=== PATIENT | male | born 1970 | race African-American/Black ===

== ENCOUNTER → 2017-09-29 | Outpatient (CLI) | payer OTHER ==
--- NOTE | 2017-09-29 09:27 | Diagnostic Imaging Report ---
PROCEDURE:ABDOMINAL ULTRASOUND COMPARISON:Abdominal ultrasound 10/06/2016. INDICATIONS:Right and Left Abdomen Pain FINDINGS: Liver: 14.4 cm in length in the right midclavicular line. Normal hepatic parenchymal echogenicity. No focal mass. Main portal vein: 1.3 cm in caliber. Hepatopedal flow. Gallbladder: Normal in sonographic appearance without wall thickening, shadowing calculus, or pericholecystic fluid. Common Bile Duct: 0.3 cm in caliber. No echogenic filling defect. Sonographic Boyd's sign: Reported as negative. Right kidney: 11.1 cm in length. No solid or cystic mass, echogenic calculi, or hydronephrosis. Normal renal cortical echogenicity. Left kidney: 11 cm in length. No solid or cystic mass, echogenic calculi, or hydronephrosis. Normal renal cortical echogenicity. Spleen: 8 cm in length. Uniform parenchymal echotexture. Pancreas: The visualized portions of the pancreas are normal. Inferior vena cava: Patent. Aorta: Non-aneurysmal. Ascites: None. CONCLUSION: Unremarkable abdominal ultrasound. Dictated by: Bakari Marte M.D. on 09/29/2017 at 9:29 Electronically approved by: Bakari Marte M.D. on 09/29/2017 at 9:29
== END ==
LOC: US 08:29
PROVIDERS: ATTEND Internal Medicine Gastroenterology
DX: R10.9 Unspecified abdominal pain (principal)
CPT/HCPCS: 76700

== ENCOUNTER → 2019-04-21 | Day surgery (SDC) | payer OTHER ==
[~2019-04-21] MED LIST: DEXMEDETOMIDINE HCL 2 ML ONE; FENTANYL CITRATE/PF 100MCG/2 ML INJ ONE; HYOSCYAMINE 0.125 MG TAB ONE; KETAMINE HCL INJ 50 MG/ML 10 ML VIAL ONE; MIDAZOLAM HCL 2 MG/2 ML VIAL ONE; MULTIVITAMINS1 EAC7 PO; PANTOPRAZOLE SO40 MG PO; PROPOFOL IV EMULSION 10 MG/ML 50 ML VIAL ONE
--- OUTSIDE RECORDS SUMMARY | 2019-04-21 11:00 | XMS REPORT ---
Author Author [facility] Address Unknown Phone Unavailable Care Team Providers Care Research Quality Assurance Specialist Name Role Phone EILEEN MINA Unavailable Unavailable Problems This patient has no known problems. Allergies, Adverse Reactions, Alerts This patient has no known allergies or adverse reactions. Medications This patient has no known medications. Results Test Description Test Time Test Comments Text Results Atomic Results Result Comments US ABDOMEN COMPLETE [place] [address] Patient Name: PATEL AMANDA MR #: [id number] : 1970 Age/Sex: 46/M Req #: [id number] Adm Physician: Ordered by: EILEEN MINA MD Report #: [id number] Location: US Room/Bed: Procedure: [id number] US/US ABDOMEN COMPLETE Exam Date: Exam Time: REPORT STATUS: Signed PROCEDURE: ABDOMINAL ULTRASOUND COMPARISON: Abdominal ultrasound 10/06/2016. INDICATIONS: Right and Left Abdomen Pain FINDINGS: Liver: 14.4 cm in length in the right midclavicular line. Normal hepatic parenchymal echogenicity. No focal mass. Main portal vein: 1.3 cm in caliber. Hepatopedal flow. Gallbladder: Normal in sonographic appearance without wall thickening, shadowing calculus, or pericholecystic fluid. Common Bile Duct: 0.3 cm in caliber. No echogenic filling defect. Sonographic Boyd's sign: Reported as negative. Right kidney: 11.1 cm in length. No solid or cystic mass, echogenic calculi, or hydronephrosis. Normal renal cortical echogenicity. Left kidney: 11 cm in length. No solid or cystic mass, echogenic calculi, or hydronephrosis. Normal renal cortical echogenicity. Sple en: 8 cm in length. Uniform parenchymal echotexture. Pancreas: The visualized portions of the pancreas are normal. Inferior vena cava: Patent. Aorta: Non-aneurysmal. Ascites: None. CONCLUSION: Unremarkable abdominal ultrasound. Dictated by: Chester Lozano M.D. on 09/29/2017 at 9:29 Electronically approved by: Chester Lozano M.D. on 09/29/2017 at 9:29 Dictated By: CHESTER LOZANO MD 8 Transcribed By: JENNIFER on 09/29/17928 COPY TO: EILEEN MINA MD
--- OUTSIDE RECORDS SUMMARY | 2019-04-21 11:00 | XMS REPORT | Summary of Care ---
Author Author STARR GARBER M.D. Organization Unknown Address [facility] Phone Unavailable Care Team Providers Care Sales Enablement Manager Name Role Phone STARR GARBER M.D. Unavailable Unavailable STARR GARBER MD Unavailable Unavailable Unavailable Unavailable Functional Status Name Dates Details Functional status health issues are not documented Status: Name Dates Details Cognitive status health issues are not documented Status: Problems Name Dates Details Lymphadenopathy, cervical (785.6, R59.0) Status: Active Medications Name Dates Details Dexilant CPDR Active Allergies and Adverse Reactions Name Dates Details No Known Drug Allergies (Allergy) Status: Active Procedures Procedure Dates Details Procedures not documented Immunization Name Dates Details Immunizations not documented Family History Name Dates Details No significant family history (V49.89, Z78.9) Comments: Family History Status: Active Social History Name Dates Details - Status: Name Dates Details Never smoker Vital Signs Date Test Result Details [id number] BP Systolic 127 mm[Hg] Status: BP Diastolic 85 mm[Hg] Status: Height 69.5 in Status: Weight 204 lb Status: Body Mass Index Calculated 29.69 kg/m2 Status: Body Surface Area Calculated 2.09 m2 Status: Heart Rate 79 /min Status: Results Date Description Value Details Results not documented Plan of Care Name Dates Details Planned Observations Planned Goals not documented Interventions Provided Labs/Procedures/Imaging* Tobacco Use Screening; Done: 07 Nov 2018 Plan* 1. Recommend excisional biopsy of the node. Instructions Name Dates Details Instructions not documented Encounters Appointment; STARR GARBER M.D. Encounter Diagnosis: Problem not documented On: 07-Nov-2018 8:30
--- NOTE | 2019-04-22 01:45 | Operative Report ---
DATE OF PROCEDURE: 04/21/2019 SURGEON: Az Rocha MD PROCEDURE: Colonoscopy with polypectomy. REFERRING PHYSICIAN: Maycol Chavis MD. INDICATION FOR COLONOSCOPY: Surveillance colonoscopy, personal history of colon polyps. MEDICATIONS: The patient was done under MAC, please see anesthesiologist's note. PROCEDURE IN DETAIL: With the patient in left lateral decubitus position, the flexible fiberoptic Olympus colonoscope was inserted into the rectum with ease and advanced all the way to the cecum. It was then withdrawn slowly. Mucosa overlying the cecum, ascending colon, transverse colon appeared to be within normal limits. Two polyps were hot biopsied from the descending colon. Two polyps were hot biopsied from the sigmoid colon. Two polyps were cold biopsied from the rectum and one polyp was hot biopsied and one polyp was hot snared. The scope was then retroflexed into the distal rectum and small internal hemorrhoids were noted, none of which was actively bleeding. The scope was then straightened out it was subsequently withdrawn. The patient tolerated procedure well. IMPRESSION: 1. Descending colon polyps x2, hot biopsied. 2. Sigmoid colon polyps x2, hot biopsied. 3. Rectal polyps x4, one hot snared, one hot biopsied and two were cold biopsied. 4. Internal hemorrhoids, none actively bleeding. PLAN: Follow up histology. Initiate high-fiber, low-fat diet. Initiate high-fiber supplement. The patient might benefit from a followup colonoscopy in 3 years. A total of 8 polyps were removed. Az Rocha MD [facility] [place]/MIR /[id number] cc: MD Maycol Wilkes MD
== END | disposition home or self-care (01) ==
LOC: OR 10:58
PROVIDERS: ATTEND Internal Medicine Gastroenterology
DX: Z09 Encounter for follow-up examination after completed treatment for conditions other than malignant neoplasm (principal); K63.5 Polyp of colon; K62.1 Rectal polyp; K64.8 Other hemorrhoids
CPT/HCPCS: 45384; 45385; J2250; J2704; J3010

== ENCOUNTER → 2022-09-03 | Outpatient (CLI) | payer OTHER ==
[~2022-09-03] MED LIST changes: -DEXMEDETOMIDINE HCL 2 ML ONE; -FENTANYL CITRATE/PF 100MCG/2 ML INJ ONE; -HYOSCYAMINE 0.125 MG TAB ONE; -KETAMINE HCL INJ 50 MG/ML 10 ML VIAL ONE; -MIDAZOLAM HCL 2 MG/2 ML VIAL ONE; -PROPOFOL IV EMULSION 10 MG/ML 50 ML VIAL ONE
== END ==
LOC: US 08:30
PROVIDERS: ATTEND Internal Medicine Gastroenterology
DX: R10.9 Unspecified abdominal pain (principal); K76.0 Fatty (change of) liver, not elsewhere classified
CPT/HCPCS: 76700; 76857